=== PATIENT | female | born 1995 | race Caucasian/White ===

== ENCOUNTER 2016-07-29 23:55 | Emergency (ER) | payer OTHER ==
[~2016-07-29] VITALS: Ht 154.9 cm; Wt 68.0 kg
[~2016-07-29 23:55] MED LIST: CYCL10TA9 PO; TRAM50TA2 PO
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
[2016-07-30 00:28] LABS: BILIRUBIN,URINE NEGATIVE (NEGATIVE); KETONES,URINE NEGATIVE (NEGATIVE); LEUKOCYTE ESTERASE ,URINE NEGATIVE (NEGATIVE); NITRITE,URINE NEGATIVE (NEGATIVE); PH,URINE 5 (5-9); PROTEIN,URINE NEGATIVE (NEGATIVE); UROBILINOGEN,URINE NORMAL (NORMAL)
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
[2016-07-30 00:39] LABS: BASOPHILS % (AUTO) 0 % (0-10); EOSINOPHILS # (AUTO) 0.1 10^3/uL (0.0-0.3); EOSINOPHILS % (AUTO) 1 % (0-10); LYMPHOCYTES # (AUTO) 2.7 X 10^3 (1.0-4.0); LYMPHOCYTES % (AUTO) 25 % (12-44); MEAN CORPUSCULAR HEMOGLOBIN 30 PG (25-34); MEAN CORPUSCULAR HGB CONC 34 G/DL (32-36); MEAN CORPUSCULAR VOLUME 87 FL (80-99); MEAN PLATELET VOLUME 10.5 FL (7.4-10.4); MONOCYTES # (AUTO) 1.1 X 10^3 (0.0-1.0); MONOCYTES % (AUTO) 10 % (0-12); NEUTROPHILS % (AUTO) 64 % (42-75); PLATELET COUNT 244 10^3/uL (130-400); RED BLOOD COUNT 4.29 10^6/uL (4.35-5.85); RED CELL DISTRIBUTION WIDTH 12.8 % (10.0-14.5); WHITE BLOOD COUNT 10.9 10^3/uL (4.3-11.0)
[2016-07-30 00:56] LABS: ANION GAP 9 MMOL/L (5-14); BLOOD UREA NITROGEN 12 MG/DL (7-18); BUN/CREATININE RATIO 18; CARBON DIOXIDE 18 MMOL/L (21-32); CHLORIDE 105 MMOL/L (98-107); CREATININE SERUM 0.65 MG/DL (0.60-1.30); GFR ESTIMATED > 60; GLUCOSE 103 MG/DL (70-105); POTASSIUM 3.9 MMOL/L (3.6-5.0); SODIUM 132 MMOL/L (135-145)
[2016-07-30] MEDS ORDERED: RX-ACETAMINOPHEN/CODEINE TAB PPK #4 PO SCH (01:30)
[2016-07-30] MEDS ORDERED: ACET-789 PO (01:31)
[2016-07-30 01:36] VITALS: BP 0/0
--- NOTE | 2016-07-30 07:25 | Diagnostic Imaging Report ---
EXAM: US OB SINGLE FETUS<14 [id number] INDICATION: Pelvic pain/cramping. COMPARISON: None. FINDINGS: Single intrauterine gestation with a crown rump length of 3.0 cm corresponding to a 10 week, zero day gestation. heart rate 165 beats per minute. There is a small hypoechoic fluid collection along the fundus measuring approximately 3.0 x 1.4 x 3.9 cm. Simple appearing cystic structure in the right adnexa measuring 9.2 x 11.3 x 8.1 cm. The left ovary is not visualized. IMPRESSION: 1. Single IUP with a crown-rump length corresponding to a gestational age of 10 weeks, zero days. heart rate 165 beats per minute. 2. Subchorionic fluid collection, probable hematoma, measuring up to 3.9 cm. Recommend short-term followup. 3. Large simple cystic structure in the right adnexa measuring up to 9.2 cm may represent a benign cyst. Recommend followup to resolution. Dictated by: Dictated on workstation # [id number]
== END 2016-07-30 01:36 | disposition home or self-care (01) ==
LOC: EDUNIT# 23:55 → ER 23:59
DX: O20.0 Threatened abortion (principal); N83.201 Unspecified ovarian cyst, right side; Z3A.10 10 weeks gestation of pregnancy
CPT/HCPCS: 36415; 76801; 80048; 81000; 84702; 85025; 86900; 86901; 99283

== ENCOUNTER → 2020-10-24 | Outpatient (CLI) | payer BC, MEDICAID ==
[~2020-10-24] MED LIST changes: +ACET-789 PO; +CATHETER FLUSH 10 ML SYR IV PRN; -TRAM50TA2 PO; +TRM50T PO
--- NOTE | 2020-10-24 14:14 | Diagnostic Imaging Report ---
INDICATION: CHRONIC DIARRHEA. FINDINGS: The patient was administered 5.48 mCi of Tc 99m Choletec and sequential imaging was performed over the right upper abdomen. There is progressive, homogeneous accumulation of radiotracer within the liver parenchyma. There is filling of the bile ducts and subsequent filling of the gallbladder. There is progressive clearance of activity from the liver parenchyma and accumulation of radiotracer within loops of small bowel. The patient was then administered a fatty meal, utilizing 8 ounces of Ensure. The gallbladder ejection fraction was calculated to be approximately 33%. (Normal values post fatty meal stimulation are 33% or greater.) IMPRESSION: 1. Hepatobiliary scan demonstrates a patent biliary tree. 2. Normal gallbladder ejection fraction of approximately 33%. Dictated by: Dictated on workstation # [id number]
== END ==
LOC: CARD 11:24
PROVIDERS: ATTEND Family Medicine
DX: K52.9 Noninfective gastroenteritis and colitis, unspecified (principal)
CPT/HCPCS: 78227; A9537